=== PATIENT | male | born 1995 | race American Indian/Alaskan Native ===

== ENCOUNTER 2017-05-16 02:09 | Emergency (ER) | payer SELFPAY ==
[2017-05-16 02:36] VITALS: BP 122/66
--- NOTE | 2017-05-16 03:40 | XRay Report ---
FINAL REPORT PROCEDURE: XR CHEST 1V AP TECHNIQUE: Chest radiograph anteroposterior view. CPT 32459 HISTORY: Fell down stairs right rib pain COMPARISON: No prior studies are available for comparison. FINDINGS: Heart: Normal. Mediastinum/Vessels: Normal. Lungs/Pleural space: Normal. Bony thorax: No acute osseous abnormality. Life support devices: None. IMPRESSION: No acute cardiopulmonary abnormality.
--- NOTE | 2017-05-16 04:10 | XRay Report ---
FINAL REPORT PROCEDURE: XR RIBS UNILAT 2V RT TECHNIQUE: Unilateral rib radiographs, 2 views of the RIGHT ribs. HISTORY: Fell down stairs right rib pain COMPARISON: No prior studies are available for comparison. FINDINGS: Lungs: Normal. Pleural space: Normal. Pneumothorax: None. Bony thorax/ribs: No significant abnormality. IMPRESSION: Normal Examination.
[2017-05-16] MEDS ORDERED: ULTRAM PO ONE (04:12)
--- NOTE | 2017-05-16 04:14 | Emergency Department Report ---
ED Fall HPI - General Chief Complaint: Fall Stated Complaint: RIGHT SIDE PAIN Time Seen by Provider: 05/16/17 03:55 Source: patient Mode of arrival: Ambulatory - History of Present Illness Initial Comments: Patient is a 21-year-old -[place] male who presents status post fall patient states fall versus 8 steps today as I was talking on the back and slipped and fell down steps there is no LOC no neck or back pain patient complains of right sided flank and rib pain there is no shortness of breath no dizziness or lightheadedness no nausea and vomiting . Patient states pain is exacerbated by movement and deep breathing pain is relieved by rest. 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 Witnessed: yes, by family Place Fall Occurred: home Loss of Consciousness: none Prolonged Down Time?: no Symptoms Prior to Fall: none Location: chest (right flank and ribs ) Severity: moderate Severity scale (0 -10): 4 Quality: sharp Context: tripped/slipped Associated Symptoms: denies: headache, neck pain, numbness, weakness, chest paint, shortness of breath, abdominal pain, hematuria, unable to walk, lightheaded, vertigo, confusion - Related Data Previous Rx's Medication Instructions Recorded Last Taken Type Naproxen 500 mg PO BID PRN #30 tablet 05/16/17 Unknown Rx Allergies Allergy/AdvReac Type Severity Reaction Status Date / Time No Known Allergies Allergy Unverified 05/16/17 02:27 ED Review of Systems ROS: Stated complaint: RIGHT SIDE PAIN Other details as noted in HPI Constitutional: denies: chills, fever Eyes: denies: eye pain, eye discharge, vision change ENT: denies: ear pain, throat pain Respiratory: other (right flank and chest wall pain ). denies: cough, orthopnea , shortness of breath, SOB with exertion, SOB at rest, stridor, wheezing Cardiovascular: chest pain (right chest wall pain ). denies: palpitations, dyspnea on exertion, orthopnea, edema, syncope, paroxysmal nocturnal dyspnea Endocrine: no symptoms reported Gastrointestinal: denies: abdominal pain, nausea, vomiting, diarrhea, constipation, hematemesis, melena, hematochezia Genitourinary: denies: urgency, dysuria, frequency, hematuria, discharge, testicular pain, testicular mass Musculoskeletal: denies: back pain, joint swelling, arthralgia, myalgia Skin: as per HPI. denies: rash, lesions, change in color, change in hair/nails , pruritus Neurological: denies: headache, weakness, numbness, paresthesias, confusion, abnormal gait, vertigo Psychiatric: denies: anxiety, depression Hematological/Lymphatic: as per HPI ED Past Medical Hx - Past Medical History Previous Medical History?: No - Surgical History Past Surgical History?: No - Social History Smoking Status: Unknown if ever smoked - Medications Home Medications: Home Medications Medication Instructions Recorded Confirmed Last Taken Type Naproxen 500 mg PO BID PRN #30 tablet 05/16/17 Unknown Rx ED Physical Exam - General Limitations: No Limitations General appearance: alert, in no apparent distress - Head Head exam: Present: atraumatic, normocephalic, normal inspection - Eye Eye exam: Present: normal appearance, PERRL, EOMI Pupils: Present: normal accommodation - ENT ENT exam: Present: normal orophraynx, mucous membranes moist, TM's normal bilaterally, normal external ear exam - Neck Neck exam: Present: normal inspection, full ROM. Absent: tenderness, lymphadenopathy, thyromegaly - Respiratory Respiratory exam: Present: normal lung sounds bilaterally, chest wall tenderness (right upper flank and rib no flail chest no crepitus no ecchymosis no swelling no deformity ). Absent: respiratory distress, wheezes, rales, rhonchi, stridor, accessory muscle use, decreased breath sounds, prolonged expiratory - Cardiovascular Cardiovascular Exam: Present: regular rate, normal rhythm, normal heart sounds - GI/Abdominal GI/Abdominal exam: Present: soft, normal bowel sounds. Absent: distended, tenderness, guarding, rebound, rigid, organomegaly, mass, bruit, pulsatile mass , hernia - Rectal Rectal exam: Present: deferred - Extremities Exam Extremities exam: Present: normal inspection, full ROM, normal capillary refill. Absent: tenderness, pedal edema, joint swelling, calf tenderness - Back Exam Back exam: Present: normal inspection, full ROM. Absent: tenderness, CVA tenderness (R), CVA tenderness (L), muscle spasm, paraspinal tenderness, vertebral tenderness, rash noted - Neurological Exam Neurological exam: Present: alert, oriented X3, CN II-XII intact, normal gait, reflexes normal. Absent: motor sensory deficit - Expanded Neurological Exam Expanded Patient oriented to: Present: person, place, time Speech: Present: fluid speech Cranial nerves: EOM's Intact: Normal, Gag Reflex: Normal, Tongue Deviation: Normal, Nystagmus: Normal, Facial Sensation: Normal, Facial Palsy with Forehead Movement: Normal, Facial Palsy without Forehead Movement: Normal Cerebellar function: Finger to Nose: Normal, Heel to [place]: Normal, Romberg: Normal Upper motor neuron: Jens Neglect: Normal, Pronator Drift: Normal, Babinski Sign : Normal, Sensory Extinction: Normal Sensory exam: Upper Extremity Light Touch: Normal, Upper Extremity Pin Prick: Normal, Upper Extremity Temperature: Normal, UE 2 Point Discrimination: Normal, Lower Extremity Light Touch: Normal, Lower Extremity Pin Prick: Normal, Lower Extremity Temperature: Normal, LE 2 Point Discrimination: Normal Motor strength exam: RUE: 5, LUE: 5, RLE: 5, LLE: 5 DTR: bicep (R): 2+, bicep (L): 2+, tricep (R): 2+, tricep (L): 2+, knee (R): 2+ , knee (L): 2+, ankle (R): 2+, ankle (L): 2+ Best Eye Response (Brianna): (4) open spontaneously Best Motor Response ([place]): (6) obeys commands Best Verbal Response (Brianna): (5) oriented [place] Total: 15 - Psychiatric Psychiatric exam: Present: normal affect, normal mood - Skin Skin exam: Present: warm, dry, intact, normal color. Absent: rash ED Course Vital Signs 05/16/17 02:28 Temperature 97.7 F Pulse Rate 89 Respiratory 18 Rate Blood Pressure 122/66 O2 Sat by Pulse 98 Oximetry ED Medical Decision Making - Radiology Data Radiology results: report reviewed, image reviewed no fracture no infiltrates no opacities no soft tissue abnormalities - Medical Decision Making Patient is a 21-year-old -[place] male who presents status post fall patient states fall versus 8 steps today as I was talking on the back and slipped and fell down steps there is no LOC no neck or back pain patient complains of right sided flank and rib pain there is no shortness of breath no dizziness or lightheadedness no nausea and vomiting . Patient states pain is exacerbated by movement and deep breathing pain is relieved by rest. pt appears well nad right upper flank and rib no flail chest no crepitus no ecchymosis no swelling no deformity no solomon no pnd no accessory muscle use, xray: normal plan naproxen 500 mg po bid prn pain , followup with pcp in 2-3 days return to ed if symptoms worsen. Critical care attestation.: If time is entered above; I have spent that time in minutes in the direct care of this critically ill patient, excluding procedure time. ED Disposition Clinical Impression: Chest wall pain Fall Qualifiers: Encounter type: initial encounter Qualified Code(s): W19.XXXA - Unspecified fall, initial encounter Disposition: TO HOME OR SELFCARE Is pt being admited?: No Does the pt Need Aspirin: No Condition: Good Instructions: Chest Pain (ED), Costochondritis (ED) Prescriptions: Naproxen 500 mg PO BID PRN #30 tablet PRN Reason: Pain Referrals: DONNELL ELLIOTT MD [Primary Care Provider] - 3-5 Days Forms: Work/School Release Form(ED) Time of Disposition: 04:24
== END 2017-05-16 04:39 | disposition home or self-care (01) ==
LOC: ED 02:09
DX: R07.89 Other chest pain (principal)
CPT/HCPCS: 71045; 99283

== ENCOUNTER 2020-07-08 14:33 | Emergency (ER) | payer SELFPAY ==
[2020-07-08 14:55] VITALS: BP 125/81
--- NOTE | 2020-07-08 14:59 | Emergency Department Report ---
ED General Adult HPI - General Chief complaint: Upper Respiratory Infection Stated complaint: HEADACHE Time Seen by Provider: 07/08/20 14:50 Source: patient Mode of arrival: Ambulatory Limitations: No Limitations - History of Present Illness Initial comments: 25-year-old -[place]ish male patient presents with complaints of facial pain and pressure for the past 10 days, worsening over the last 3 days. He admits to postnasal drainage and nasal congestion and mild cough. No fever/chills/sweats per patient. He denies any shortness of breath. Patient rates his pain as a 9/10 in severity and states it is minimally improved with ibuprofen and Tylenol. He states he is taking Claritin which seems to help a little. He is not currently following with ENT - Related Data Previous Rx's Medication Instructions Recorded Last Taken Type Naproxen 500 mg PO BID PRN #30 tablet 05/16/17 Unknown Rx Cyclobenzaprine [Flexeril] 10 mg PO QHS PRN #10 tablet 01/15/18 Unknown Rx Ibuprofen [Motrin] 600 mg PO Q8H PRN #20 tablet 01/15/18 Unknown Rx Doxycycline Monohydrate 100 mg PO BID 10 Days #20 tablet 07/08/20 Unknown Rx Prednisone [predniSONE 10 mg 10 mg PO .TAPER #1 tab.ds.pk 07/08/20 Unknown Rx (6-Day Pack, 21 Tabs)] Allergies Allergy/AdvReac Type Severity Reaction Status Date / Time No Known Allergies Allergy Verified 07/08/20 14:53 ED Review of Systems ROS: Stated complaint: HEADACHE Other details as noted in HPI Constitutional: see HPI ENT: denies: throat pain Respiratory: cough Gastrointestinal: denies: nausea, vomiting Hematological/Lymphatic: denies: swollen glands ED Past Medical Hx - Past Medical History Previous Medical History?: No - Surgical History Past Surgical History?: No - Social History Smoking Status: Never Smoker Substance Use Type: None - Medications Home Medications: Home Medications Medication Instructions Recorded Confirmed Last Taken Type Naproxen 500 mg PO BID PRN #30 tablet 05/16/17 Unknown Rx Cyclobenzaprine [Flexeril] 10 mg PO QHS PRN #10 tablet 01/15/18 Unknown Rx Ibuprofen [Motrin] 600 mg PO Q8H PRN #20 tablet 01/15/18 Unknown Rx Doxycycline Monohydrate 100 mg PO BID 10 Days #20 tablet 07/08/20 Unknown Rx Prednisone [predniSONE 10 mg 10 mg PO .TAPER #1 tab.ds.pk 07/08/20 Unknown Rx (6-Day Pack, 21 Tabs)] ED Physical Exam - General Limitations: No Limitations General appearance: alert, in no apparent distress - Head Head exam: Present: atraumatic, normocephalic - Eye Eye exam: Present: normal appearance. Absent: scleral icterus - ENT ENT exam: Present: normal orophraynx, other (Significant tenderness noted to the frontal and bilateral maxillary sinuses without swelling or overlying skin changes noted) - Neck Neck exam: Present: normal inspection, full ROM. Absent: lymphadenopathy - Respiratory Respiratory exam: Present: normal lung sounds bilaterally. Absent: respiratory distress - Cardiovascular Cardiovascular Exam: Present: regular rate, normal rhythm - Neurological Exam Neurological exam: Present: alert, oriented X3 - Psychiatric Psychiatric exam: Present: normal affect, normal mood - Skin Skin exam: Present: warm, dry, intact, normal color. Absent: rash ED Course Vital Signs 07/08/20 14:52 Temperature 98.4 F Pulse Rate 78 Respiratory 20 Rate Blood Pressure 125/81 O2 Sat by Pulse 99 Oximetry ED Medical Decision Making - Medical Decision Making 25-year-old -[place]ish male patient presents with complaints of facial pain and pressure for the past 10 days, worsening over the last 3 days. He admi ts to postnasal drainage and nasal congestion and mild cough. No fever/chills/sweats per patient. He denies any shortness of breath. Patient rates his pain as a 9/10 in severity and states it is minimally improved with ibuprofen and Tylenol. He states he is taking Claritin which seems to help a little. He is not currently following with ENT We will treat for acute bacterial sinusitis with doxycycline and prednisone. Recommend follow-up with primary care provider in 3 to 5 days. Discussed signs symptoms that should prompt immediate return to the emergency department in detail with patient verbalized understanding. He is nontoxic appearing, his vitals are within normal limits, he is stable for discharge home peer Critical care attestation.: If time is entered above; I have spent that time in minutes in the direct care of this critically ill patient, excluding procedure time. ED Disposition Clinical Impression: Acute bacterial sinusitis Disposition: DC- TO HOME OR SELFCARE Is pt being admited?: No Condition: Stable Instructions: Sinusitis, Adult Additional Instructions: Please purchase [id number] fluticasone and use 2 sprays in each nostril once a day as needed for nasal congestion Levocetirizine Prescriptions: Doxycycline Monohydrate 100 mg PO BID 10 Days #20 tablet Prednisone [predniSONE 10 mg (6-Day Pack, 21 Tabs)] 10 mg PO .TAPER #1 tab.ds.pk Referrals: [facility] [Provider Group] - 3-5 Days Forms: Work/School Release Form(ED)
== END 2020-07-08 15:26 | disposition home or self-care (01) ==
LOC: ED 14:33
DX: J32.8 Other chronic sinusitis (principal); B96.89 Other specified bacterial agents as the cause of diseases classified elsewhere; Z79.899 Other long term (current) drug therapy
CPT/HCPCS: 99282